=== PATIENT | male | born 1990 | race Caucasian/White ===

== ENCOUNTER 2023-04-12 10:42 | Emergency (ER) | payer MEDICAID, OTHER ==
[~2023-04-12] VITALS: Ht 177.8 cm; Wt 75.0 kg
[~2023-04-12 10:42] MED LIST: NOCURR
[2023-04-12 10:45] VITALS: TEMP 98.8
[2023-04-12] MEDS ORDERED: PROPARACAINE HCL 0.5% 15 ML OPHTHALMIC SOLUTION OU ONE (12:15)
[2023-04-12] MEDS ORDERED: FLUORESCEIN SODIUM 1 MG STRIP OU ONE (12:15)
[2023-04-12 12:30] VITALS: BP 120/72; PULSE 80; RESP 18
[2023-04-12] MEDS ORDERED: ERYT3.5O8 OU (13:04)
== END 2023-04-12 13:12 | disposition home or self-care (01) ==
LOC: EMS 10:42
DX: H10.9 Unspecified conjunctivitis (principal)
CPT/HCPCS: 99283